=== PATIENT | male | born 1935 | race African-American/Black ===

== ENCOUNTER 2018-11-06 13:32 | Emergency (ER) | payer MEDICAID, OTHER ==
[~2018-11-06] VITALS: Ht 185.4 cm; Wt 85.7 kg
[~2018-11-06 13:32] MED LIST: AMLO10TA80 PO; AMLO5TAB4 PO; ATOR10TA PO; ATOR20TA65 PO; CALCIUM PO; LISI-186 PO; LISI10TA5 PO; LISI40TA4 PO; LOSA100T32 PO; METF-414 PO; MULT-1146 PO; TAMS0.4C31 PO
[2018-11-06] MEDS ORDERED: MORPHINE SULFATE 4 MG/ML CPJ (NOT FOR IM USE) IV STA (14:43)
[2018-11-06] MEDS ORDERED: SODIUM CHLORIDE 0.9% 1,000 ML IV ONE (14:43)
[2018-11-06] MEDS ORDERED: ONDANSETRON HCL 4MG/2ML INJ IV STA (14:43)
[2018-11-06 15:08] LABS: BASOPHILS % 0.4 % (0.0-2.0); EOSINOPHILS % 4.2 % (0.0-5.0); HEMATOCRIT. 39.5 % (42.0-52.0); HEMOGLOBIN. 13.5 g/dL (14.0-18.0); LYMPHOCYTES % 11.3 % (20.0-50.0); MEAN CORPUSCULAR HEMOGLOBIN 30.3 pg (28.0-32.0); MEAN PLATELET VOLUME 7.4 fl (7.4-10.4); MONOCYTES % 7.3 % (2.0-8.0); NEUTROPHILS % 76.8 % (40.0-76.0); PLATELET 173 x1000/uL (130-400); RED BLOOD CELL COUNT 4.44 mill/uL (4.7-6.1); RED CELL DISTRIBUTION WIDTH 14.8 % (11.6-14.6)
[2018-11-06 15:15] LABS: CHLORIDE 108 mEq/L (98-107)
[2018-11-06 15:17] LABS: INR 1.1; PROTHROMBIN TIME 11.2 sec (9.6-11.0)
[2018-11-06 15:24] LABS: CREATINE KINASE 247 IU/L (39-308)
[2018-11-06 15:26] LABS: CREATINE KINASE MB FRACTION 3.7 ng/mL (0.5-3.6)
[2018-11-06 16:36] LABS: CLARITY URINE CLEAR (CLEAR); COLOR URINE YELLOW (YELLOW); KETONES URINE TRACE (NEGATIVE); LEUKOCYTE ESTERASE URINE TRACE (NEGATIVE); NITRITE URINE NEGATIVE (NEGATIVE); OCCULT BLOOD URINE NEGATIVE (NEGATIVE); PH URINE 5.5 (4.5-8.0); PROTEIN URINE TRACE (NEGATIVE); SPECIFIC GRAVITY URINE 1.018 (1.005-1.030)
[2018-11-06 18:00] VITALS: BP 134/55
== END 2018-11-06 18:00 | disposition home or self-care (01) ==
LOC: ER 13:32 → CANBEDREQ 22:21
DX: K40.90 Unilateral inguinal hernia, without obstruction or gangrene, not specified as recurrent (principal); E78.00 Pure hypercholesterolemia, unspecified; I10 Essential (primary) hypertension; Z98.890 Other specified postprocedural states
CPT/HCPCS: 36415; 71045; 74176; 80053; 81003; 82550; 82553; 83690; 83880; 84484; 85025; 85610; 93005; 96374; 96375; 99284; J2270; J2405; J7030